=== PATIENT | male | born 1995 | race Caucasian/White ===

== ENCOUNTER → 2017-10-26 | Outpatient (CLI) | payer BC | LOC: COL.RAD 17:21 | DX: J93.9 Pneumothorax, unspecified (principal); Z87.09 Personal history of other diseases of the respiratory system ==

== ENCOUNTER 2018-04-06 09:55 | Day surgery (SDC) | payer BC ==
[2018-04-06] VITALS (7 sets, daily range): BP systolic 113–131; BP diastolic 51–73; PULSE 47–76; TEMP 98.8–99
[~2018-04-06] VITALS: Ht 182.9 cm; Wt 63.6 kg
[2018-04-06 10:32] LABS: BASO % 0.2 % (0.0-2.0); EOS % 0.3 % (0-4.0); GRAN # 11.3 (1.4-6.5); GRAN % 81.1 % (42.2-75.2); HEMATOCRIT 46.8 % (36.0-47.0); HEMOGLOBIN 17.1 g/dl (12.5-16.1); LYMPH # 1.5 (1.2-3.4); LYMPH % 10.4 % (20.0-51.0); MEAN CELL VOLUME 89 fl (80.0-95.0); MEAN CORPUSCULAR HEMOGLOBIN 32 pg (26.0-32.0); MEAN CORPUSCULAR HGB CONC 37 g/dl (33.0-37.0); MEAN PLATELET VOLUME 9.6 fl (7.4-10.4); MONO # 1.1 (0.1-0.6); MONO % 7.6 % (1.7-9.3); PLATELET COUNT 225 K/mm3 (130-400); RED BLOOD COUNT 5.28 M/mm3 (4.20-5.60); REDCELL DISTRIBUTION WIDTH-CV 11.5 % (11.5-14.5)
[2018-04-06 10:41] LABS: ALBUMIN 4.5 gm/dL (3.5-5.0); BILIRUBIN,TOTAL 2.4 mg/dL (0.0-1.0); C-REACTIVE PROTEIN 2.8 mg/dL (0.0-0.9); CALCIUM 9.5 mg/dL (8.4-10.2); CREATININE, serum 0.79 mg/dL (0.66-1.25); POTASSIUM 3.8 mmol/L (3.4-5.0); TOTAL PROTEIN 7.7 gm/dL (6.4-8.2)
[2018-04-06 11:01] LABS: COLLECTION METHOD CLEAN CATCH
[2018-04-06 11:46] LABS: PH 6 (5-8); URINE APPEARANCE Clear; URINE BILIRUBIN Negative (NEGATIVE); URINE BLOOD Negative (NEGATIVE); URINE COLOR Yellow; URINE GLUCOSE Negative (NEGATIVE); URINE KETONE 1+ (NEGATIVE); URINE LEUKOCYTE ESTERASE Negative (NEGATIVE); URINE NITRATE Negative (NEGATIVE); URINE PROTEIN(semi-quant) Negative (NEGATIVE); URINE UROBILINOGEN >=4.0 mg/dL (NEGATIVE)
[2018-04-06 11:47] LABS: MUCOUS Present /lpf; SQUAMOUS EPITHELIAL None Seen /hpf; URINE BACTERIA None Seen /hpf; URINE RBC 0-2 /hpf
[2018-04-07 00:28] VITALS: BP 121/50; PULSE 60; TEMP 97.6
[2018-04-07 04:08] VITALS: BP 114/50; PULSE 51; TEMP 98.5
[2018-04-07 07:13] VITALS: BP 97/43; PULSE 61; TEMP 98.4
[2018-04-07] MEDS ORDERED: NORCO 325 MG-51 TAB PO (08:35)
== END 2018-04-07 10:05 | disposition home or self-care (01) ==
LOC: COL.ER 09:55 → SDCO 11:36 → MEDICAL 13:05 → COL.ER 13:05 → SDCO 04-07 10:05 → MEDICAL 04-07 10:05
PROVIDERS: Emergency Medicine
DX: K35.80 Unspecified acute appendicitis (principal)
CPT/HCPCS: J0696; J1100; J1885; J2405; J2704; J2710; J7030; J7120; Q9967